=== PATIENT | male | born 1970 | race Caucasian/White ===

== ENCOUNTER 2017-01-18 13:28 | Emergency (ER) | payer OTHER ==
[~2017-01-18] VITALS: Ht 180.3 cm; Wt 127.0 kg
[2017-01-18] MEDS ORDERED: MELOXICAM15 MG PO (14:19)
[2017-01-18] MEDS ORDERED: COZAAR25 MG PO (14:20)
[2017-01-18] MEDS ORDERED: DULOXETINE HCL20 MG PO (14:20)
[2017-01-18] MEDS ORDERED: CYMBALTA60 MG PO ×2 (14:21→14:58)
== END 2017-01-18 15:05 | disposition home or self-care (01) ==
LOC: ED 13:28
DX: F41.1 Generalized anxiety disorder (principal); I10 Essential (primary) hypertension; Z79.899 Other long term (current) drug therapy
CPT/HCPCS: 99283